=== PATIENT | male | born 1975 | race Caucasian/White ===

== ENCOUNTER 2017-06-17 05:00 | Emergency (ER) | payer OTHER ==
[~2017-06-17] VITALS: Ht 180.3 cm; Wt 129.5 kg
[2017-06-17] MEDS ORDERED: ONDANSETRON ODT 4 MG ONE (05:23)
[2017-06-17] MEDS ORDERED: KETOROLAC 30 MG/1 ML ONE (05:23)
[2017-06-17 05:29] LABS: MICROSCOPIC AUTO
[2017-06-17 05:30] LABS: CULTURE INDICATED? NO
[2017-06-17] MEDS ORDERED: TAMSULOSIN 0.4 MG CAP.ER.24H PO ONE (05:30)
[2017-06-17] MEDS ORDERED: ONDANSETRON ODT 4 MG PO ONE (05:30)
[2017-06-17] MEDS ORDERED: KETOROLAC 30 MG/1 ML IM ONE (05:30)
[2017-06-17] MEDS ORDERED: TAMSULOSIN 0.4 MG CAP.ER.24H ONE (05:37)
[2017-06-17 05:59] LABS: MEAN CORPUSCULAR HEMOGLOBIN 30.5 pg (27.5-34.5); MEAN CORPUSCULAR HGB CONC 34.7 g/dL (33.2-36.2); MEAN CORPUSCULAR VOLUME 87.8 fL (81-97); PLATELET COUNT 272 x10^3/uL (130-400); RED BLOOD COUNT 5.01 x10^6/uL (4.38-5.82); RED CELL DISTRIBUTION WIDTH 13.3 % (9.4-14.8)
[2017-06-17 06:03] LABS: ANION GAP 10 mmol/L (5-15); CALCIUM 9.1 mg/dL (8.5-10.1); CHLORIDE 106 mmol/L (98-107); CREATININE 1.45 mg/dL (0.7-1.3)
[2017-06-17 07:03] VITALS: BP 138/84
[2017-06-17 07:21] LABS: MD YES
[2017-06-17 07:22] LABS: BAND#(MANUAL) 0.25 x10^3/uL; BANDS%(MANUAL) 2 % (0-7); LYMPH#(MANUAL) 0.75 x10^3/uL (1-3.4); LYMPHS% (MANUAL) 6 % (22-44); MONOS#(MANUAL) 0.25 x10^3/uL (0.3-2.7); MONOS% (MANUAL) 2 % (2-9); SEG#(MANUAL) 11.25 x10^3/uL (1.8-6.8); SEGS% (MANUAL) 90 % (42-75)
[2017-06-17 07:23] LABS: <PLATELET ESTIMATE> ADEQUATE; <PLT MORPHOLOGY> NORMAL PLT MORPH; <RBC MORPHOLOGY> NORMAL
== END 2017-06-17 07:05 | disposition home or self-care (01) ==
LOC: ED 06:18
DX: N20.2 Calculus of kidney with calculus of ureter (principal); N13.30 Unspecified hydronephrosis
CPT/HCPCS: 36415; 74176; 80048; 81001; 82040; 85025; 96372; 99285; J1885; Q0162